=== PATIENT | male | born 1985 | race African-American/Black ===

== ENCOUNTER 2021-07-20 11:57 | Emergency (ER) | payer OTHER ==
[~2021-07-20] VITALS: Ht 170.2 cm; Wt 68.0 kg
[2021-07-20] MEDS ORDERED: TRILEPTAL300 MG PO (12:26)
[2021-07-20] MEDS ORDERED: RISPERDAL0.5 MG PO (12:26)
[2021-07-20] MEDS ORDERED: ZYPREXA20 MG PO (12:26)
[2021-07-20] MEDS ORDERED: HYDROXYZINE HCL50 MG PO (12:26)
[2021-07-20 12:27] LABS: URINE BILIRUBIN NEGATIVE (Negative); URINE BLOOD NEGATIVE (Negative); URINE CLARITY CLEAR; URINE COLOR YELLOW; URINE GLUCOSE-RANDOM NEGATIVE (Negative); URINE KETONES NEGATIVE (Negative); URINE LEUKOCYTES-REFLEX NEGATIVE (Negative); URINE NITRITE-REFLEX NEGATIVE (Negative); URINE PROTEIN NEGATIVE (Negative); URINE SPECIFIC GRAVITY 1.015 (1.005-1.030); URINE UROBILINOGEN 0.2 E.U./dl (0.2-1.0)
[2021-07-20] MEDS ORDERED: REMERON15 M2 PO (12:27)
[2021-07-20] MEDS ORDERED: NEURONTIN 400M400 M2 PO (12:27)
[2021-07-20 12:29] LABS: ABSOLUTE BASOPHILS 0.1 thou/uL (0.0-0.2); ABSOLUTE EOSINOPHILS 0.2 thou/uL (0.0-0.7); ABSOLUTE LYMPHOCYTES 1.3 thou/uL (0.8-5.3); ABSOLUTE MONOCYTES 0.3 thou/uL (0.0-1.2); ABSOLUTE NEUTROPHILS 2.7 thou/uL (1.6-8.1); BASOPHILS 1.4 %; EOSINOPHILS 3.5 %; HEMATOCRIT 39.4 % (42.0-52.0); HEMOGLOBIN 12.6 gm/dL (14.0-18.0); LYMPHOCYTES 28.2 %; MCH 24.5 pg (26.0-34.0); MCHC 32.1 g/dL (28.0-37.0); MCV 76.3 fL (80.0-100.0); MONOCYTES 5.9 %; MPV 7.7 fl. (7.2-11.1); NUCLEATED RBCS 0 /100WBC; PLATELET COUNT* 263 thou/uL (150-400); RBC 5.17 mil/uL (4.50-6.00); RDW-CV 16.9 % (10.5-14.5); WBC 4.5 thou/uL (4.0-11.0)
[2021-07-20 12:34] LABS: AMP/METHAMP Negative (Negative); BARBITURATES Negative (Negative); BENZODIAZEPINES Negative (Negative); COCAINE Negative (Negative); METHADONE Negative (Negative); OPIATES Negative (Negative); PCP Negative (Negative); THC Negative (Negative)
[2021-07-20 12:36] LABS: CREATININE 0.7 mg/dL (0.6-1.3); POTASSIUM 4.2 mmol/L (3.5-5.1)
[2021-07-20 12:41] LABS: ALBUMIN 3.3 g/dL (3.4-5.0); TOTAL BILIRUBIN 0.2 mg/dL (<0.1-1.0); TOTAL PROTEIN 6.1 g/dL (6.4-8.2)
[2021-07-20 12:49] LABS: SALICYLATE < 2.8 mg/dL (2.8-20.0)
[2021-07-20 12:50] LABS: ACETAMINOPHEN < 2 ug/mL (10-30); ALCOHOL < 10 mg/dL (<10)
[2021-07-20 19:00] VITALS: BP 122/64
== END 2021-07-20 19:00 ==
LOC: M.ERS 11:57
PROVIDERS: Family Medicine
DX: R45.851 Suicidal ideations (principal); Z20.822 Contact with and (suspected) exposure to COVID-19; Z79.899 Other long term (current) drug therapy; Z88.0 Allergy status to penicillin; Z88.6 Allergy status to analgesic agent; Z88.8 Allergy status to other drugs, medicaments and biological substances